=== PATIENT | female | born 1980 | race African-American/Black ===

== ENCOUNTER 2023-01-24 19:12 | Emergency (ER) | payer OTHER ==
[~2023-01-24] VITALS: Ht 157.5 cm; Wt 54.4 kg
--- NOTE | 2023-01-24 19:40 | NUR ---
Dr. Tobar evaluating patient at bedside. MSE in progress.
[2023-01-24 19:56] VITALS: BP 110/71
--- NOTE | 2023-01-24 19:56 | NUR ---
Patient discharged to home in stable condition. Written and verbal after care instructions given. Patient verbalizes understanding of instructions. Stressed follow up or return to ER for worsening s/s.
== END 2023-01-24 19:57 | disposition home or self-care (01) ==
LOC: ER 19:14
DX: N63.0 Unspecified lump in unspecified breast (principal); F17.210 Nicotine dependence, cigarettes, uncomplicated
CPT/HCPCS: A4663